=== PATIENT | male | born 2000 | race African-American/Black ===

== ENCOUNTER 2021-06-03 09:30 | Emergency (ER) | payer OTHER ==
--- NOTE | 2021-06-03 10:09 | RAD REPORT ---
EXAM DESCRIPTION: CT - CTHCSPWOC - 06/03/2021 9:59 am CLINICAL HISTORY: PAIN COMPARISON: No comparisons TECHNIQUE: Axial 5 mm thick images of the head were obtained. Axial 2 mm thick images of the cervic al spine were obtained with sagittal and coronal reconstruction images generated and reviewed. Hortencia miles is imaged in a left lateral decubitus position. All CT scans are performed using dose optimization technique as appropriate and may include automated exposure control or mA/KV adjustment according to patient size. FINDINGS: Moderate amount of bilateral subfrontal cortical contusion is present. A 16 millimeter int raparenchymal hemorrhage is present medial left frontal lobe. Patient also has a small interhemispher ic subdural 1-2 mm in thickness. No midline shift. No intraventricular hemorrhage. No suspicion for a cute infarction. No extra-axial fluid collections. Mastoid air cells are clear. Sphenoid sinus mucosa l thickening is present. Air-fluid level is present in the maxillary sinus on the left. Sinus wall fr acture is not seen. No globe or orbit abnormality seen. Cervical body height and alignment are normal. No disk space narrowing. No fracture or acute bony abn ormality. Central canal detail is inherently limited. No paraspinal mass or hematoma. IMPRESSION: Moderate severity bilateral subfrontal cortical contusion with 16 millimeter intraparenc hymal hemorrhage medial left frontal lobe. A small 1-2 mm thickness interhemispheric subdural hematoma seen anteriorly. No midline shift and no intraventricular hemorrhage. No cervical spine abnormalities identified. Air-fluid level in the left maxillary sinus without sinus wall fracture identifiable.
[2021-06-03] MEDS ORDERED: NA CHLORIDE 0.9% 1,000 ML ONE (10:25)
[2021-06-03] MEDS ORDERED: levETIRAcetam 1,000 MG in NA CHLORIDE 0.9% 100 ML IV ONE (10:30)
--- NOTE | 2021-06-03 10:31 | ER ---
Nurse's Notes [facility] Name: Davie Pitts Age: 21 yrs Sex: Male : 2000 Arrival Date: 06/03/2021 Time: 09:31 Bed 3 Private MD: Diagnosis: Unspecified injury of head, initial encounter-Moderate severity subfrontal cortical contusion, 16 mm intraparenchymal hemorrhage, 1-2 mm thick interhemispheric subdurahematoma, no shift;Acute post-traumatic headache;Traumatic subdural hemorrhage;Fall (on) (from) unspecified stairs and steps-jumping;Elevated white blood cell count Presentation: 06/03 09:31 Chief complaint: EMS states: Pt from [facility], fell while playing basketball and ph hit back of head, no LOC, was seen at [facility] and began vomiting, pt admitted to smoking "marisa" prior to fall, drowsy upon arrival to ED but responsive to tactile stimuli, VSS, BGL 128, 10 mg Reglan given IV. Coronavirus screen: At this time, the client does not indicate any symptoms associated with coronavirus-19. Ebola Screen: No symptoms or risks identified at this time. Initial Sepsis Screen: Does the patient meet any 2 criteria? No. Patient's initial sepsis screen is negative. Does the patient have a suspected source of infection? No. Patient's initial sepsis screen is negative. Risk Assessment: Do you want to hurt yourself or someone else? Patient reports no desire to harm self or others. Onset of symptoms was June 03, 2021. 09:31 Method Of Arrival: EMS: [facility] ph 09:31 Acuity: LUZ 3 ph 09:40 Care prior to arrival: Cervical collar in place. Medication(s) given: 10 mg Reglan IV. ph Care prior to arrival: IV initiated. 18 GA, in the left antecubital area, Glucose check: 128. Mechanism of Injury: Fall from standing position. Trauma event details: Injury occurred in the [facility], Injury occurred: in an institution. Injury occurred: June 03, 2021. 10:18 Acuity: LUZ 2 ph Trauma Activation: Not Applicable Physician: ED Physician; Name: ; Notified At: ; Arrived At: Physician: General Surgeon; Name: ; Notified At: ; Arrived At: Physician: Radiology; Name: ; Notified At: ; Arrived At: Physician: Respiratory; Name: ; Notified At: ; Arrived At: Physician: Lab; Name: ; Notified At: ; Arrived At: Historical: - Allergies: 09:34 No Known Allergies; ph - Home Meds: 09:34 None [Active]; ph - PMHx: 09:34 None; ph - Immunization history:: Adult Immunizations up to date. - Social history:: Smoking status: unknown Patient uses street drugs, "Marisa". - Immunization history: Last tetanus immunization: - up to date. Screenin:39 Abuse screen: Denies threats or abuse. Denies injuries from another. Nutritional ph screening: No deficits noted. Tuberculosis screening: No symptoms or risk factors identified. Fall Risk None identified. Primary Survey: 09:39 NO uncontrolled hemorrhage observed. A: The patient is alert. Breathing/Chest: ph Respiratory pattern: regular, Respiratory effort: spontaneous, unlabored, Breath sounds: clear, bilaterally. Chest inspection: symmetrical rise and fall of the chest. Circulation: Skin color: pink, Skin temperature: warm, dry. Disability Painful Stimuli. Exposure/Environment: All clothing and personal items were removed. Forensic evidence collection is not deemed to be indicated at this time. Items placed in patient belonging bag. There is no evidence of uncontrolled external bleeding. No obvious injuries are noted at this time. 10:54 Reassessment Airway Airway Patent Breathing/Chest Respiratory pattern Regular ph Respiratory effort Spontaneous Unlabored Circulation Color [place] Temperature Warm Dry Disability Verbal stimuli. Secondary Survey: 09:30 HEENT: Nose: dried blood noted to L nostril. Gastrointestinal: Patient vomited prior to arrival. Musculoskeletal: No deficits noted. Assessment: 09:35 General: Appears in no apparent distress. comfortable, Behavior is drowsy, quiet. Pain: Complains of pain in occipital area. Neuro: Level of Consciousness is obeys commands, lethargic, Oriented to person, Pupils are PERRLA. Cardiovascular: Capillary refill < 3 seconds in bilateral fingers Patient's skin is warm and dry. Respiratory: Airway is patent Respiratory effort is even, unlabored. GI: Reports nausea, vomiting. Derm: Skin is intact, is healthy with good turgor, Skin is pink, warm \\T\\ dry. Musculoskeletal: Circulation, motion, and sensation intact. Range of motion: intact in all extremities. 10:35 Reassessment: Report given to YURIDIA Coleman at [facility]. ph 11:34 Reassessment: Patient appears in no apparent distress at this time. Patient and/or ph family updated on plan of care and expected duration. Pain level reassessed. Pt remains drowsy, resting w/ eyes closed. will respond to tactile and verbal stimuli when called loudly by name, pt states that he needs to urinate, assisted w/ urinal but falls asleep before urinating, VSS at this time, awaiting transport to [facility]. 12:22 Reassessment: Patient appears in no apparent distress at this time. Patient and/or ph family updated on plan of care and expected duration. Pain level reassessed. Pt resting w/ eyes closed, VSS, awakens briefly to verbal and tactile stimuli and quickly falls back asleep, awaiting transport to [facility]. 13:25 Reassessment: Patient appears in no apparent distress at this time. Patient and/or ph family updated on plan of care and expected duration. Pain level reassessed. [facility] at bedside, pt remains drowsy, will open eyes briefly bu [id number] to answer EMS's questions, then pt sat up straight in bed and states, " I have to pee man" Pt assisted to stand and use urinal then loaded onto EMS stretcher, quickly trolled onto side and fell back asleep. Vital Signs: 09:31 BP 139 / 65; Pulse 69; Resp 18; Temp 97.8; Pulse Ox 100% on R/A; Weight 79.38 kg; ph 10:55 Pulse 72; Resp 18; Pulse Ox 100% on R/A; ph 11:33 BP 131 / 104; Pulse 59; Resp 18; Pulse Ox 100% on R/A; ph 12:21 BP 133 / 60; Pulse 63; Resp 18; Pulse Ox 100% on R/A; ph 13:20 BP 127 / 89; Pulse 71; Resp 18; Temp 98.2; Pulse Ox 99% on R/A; ph Tari Coma Score: 09:39 Eye Response: to pain(2). Verbal Response: confused(4). Motor Response: obeys ph commands(6). Total: 12. 10:09 Eye Response: spontaneous(4). Verbal Response: confused(4). Motor Response: localizes nghia pain(5). Total: 13. 10:55 Eye Response: to voice(3). Verbal Response: confused(4). Motor Response: obeys ph commands(6). Total: 13. 11:33 Eye Response: to voice(3). Verbal Response: confused(4). Motor Response: obeys ph commands(6). Total: 13. 12:21 Eye Response: to voice(3). Verbal Response: confused(4). Motor Response: obeys ph commands(6). Total: 13. 13:20 Eye Response: to voice(3). Verbal Response: confused(4). Motor Response: obeys ph commands(6). Total: 13. Trauma Score (Adult): 09:39 Eye Response: to pain(0); Verbal Response: confused(1); Motor Response: obeys ph commands(2); Systolic BP: > 89 mm Hg(4); Respiratory Rate: 10 to 29 per min(4); Tari Score: 12; Trauma Score: 11 10:55 Eye Response: to voice(0); Verbal Response: confused(1); Motor Response: obeys ph commands(2); Systolic BP: > 89 mm Hg(4); Respiratory Rate: 10 to 29 per min(4); Bern Score: 13; Trauma Score: 11 11:33 Eye Response: to voice(0); Verbal Response: confused(1); Motor Response: obeys ph commands(2); Systolic BP: > 89 mm Hg(4); Respiratory Rate: 10 to 29 per min(4); Tari Score: 13; Trauma Score: 11 12:21 Eye Response: to voice(0); Verbal Response: confused(1); Motor Response: obeys ph commands(2); Systolic BP: > 89 mm Hg(4); Respiratory Rate: 10 to 29 per min(4); Bern Score: 13; Trauma Score: 11 13:20 Eye Response: to voice(0); Verbal Response: confused(1); Motor Response: obeys ph commands(2); Systolic BP: > 89 mm Hg(4); Respiratory Rate: 10 to 29 per min(4); Bern Score: 13; Trauma Score: 11 ED Course: 09:31 Patient arrived in ED. ph 09:31 Jorge Ball MD is Attending Physician. nghai 09:34 Triage completed. ph 09:35 Arm band placed on Patient placed in an exam room, on a stretcher, on pulse oximetry. ph 09:40 Patient has correct armband on for positive identification. Bed in low position. Call ph light in reach. Pulse ox on. NIBP on. Warm blanket given. 09:40 Patient maintains SpO2 saturation greater than 95% on room air. Thermoregulation: warm ph blanket given to patient. 09:58 Jane Fuchs RN is Primary Nurse. ph 09:59 CT Head C Spine In Process Unspecified. EDMS 10:12 transfer initiated to [facility] managed care by Dr Jorge Ball. bd 10:41 Chest Single View XRAY In Process Unspecified. EDMS 10:54 No provider procedures requiring assistance completed. Patient transferred, IV remains ph in place. Administered Medications: 10:30 Drug: NS 0.9% 1000 ml Route: IV; Rate: 1 bolus; Site: left antecubital; ph 12:00 Follow up: Response: No adverse reaction; IV Status: Completed infusion; IV Intake: ph 1000ml 10:30 Drug: Rocephin (cefTRIAXone) 1 grams Route: IV; Rate: per protocol; Site: left ph antecubital; 11:00 Follow up: Response: No adverse reaction; IV Status: Completed infusion ph 10:35 Drug: Zofran (Ondansetron) 4 mg Route: IVP; Site: left antecubital; ph 11:00 Follow up: Response: No adverse reaction ph 10:54 Drug: Keppra (levETIRAcetam) 1000 mg Route: IV; Rate: per protocol; Site: left ph antecubital; 11:15 Follow up: Response: No adverse reaction; IV Status: Completed infusion ph 19:40 Not Given (Other Intervention Used): Viscous Lidocaine Liquid (4 %) 5 ml Mucous ph Membrane once; to bedside Intake: 09:39 PO: 0ml; Total: 0ml. ph 10:55 IV: 1000ml (IV Fluid); Total: 1000ml. ph 12:00 IV: 1000ml; Total: 2000ml. ph 12:21 PO: 0ml; Total: 2000ml. ph Output: 13:20 Urine: 500ml (Voided); Total: 500ml. ph Outcome: 10:31 ER care complete, transfer ordered by MD. nghia 13:27 Patient left the ED. iw 13:27 Transferred by ground EMS to [facility], Transfer form ph completed. X-rays sent w/ patient. 13:27 Condition: stable 13:27 Instructed on the need for transfer. 13:27 Patient's length of stay in the Emergency Department was greater than 2 hours. due to ph awaiting transportPatient's length of stay extended due to Signatures: Dispatcher [employer] EDMS Debby Irby Corey, MD MD cha Williams, Irene, RN RN iw Jane Fuchs RN RN ph Corrections: (The following items were deleted from the chart) 11:34 11:33 BP 131 / 104; Pulse 93bpm; Resp 18bpm; Pulse Ox 100% RA; ph ph
--- NOTE | 2021-06-03 10:31 | EDPHYS ---
Physician Documentation [facility] Name: Davie Pitts Age: 21 yrs Sex: Male : 2000 Arrival Date: 06/03/2021 Time: 09:31 Bed 3 Private MD: ED Physician Jorge Ball HPI: 06/03 10:07 This 21 yrs old Black Male presents to ER via EMS with complaints of Fall Injury. nghia 10:07 Details of fall: The patient fell from an upright position, while jumping. Onset: The nghia symptoms/episode began/occurred just prior to arrival. Associated injuries: The patient sustained injury to the head, neck injury, decreased range of motion. Severity of symptoms: At their worst the symptoms were moderate, in the emergency department the symptoms are unchanged. The patient has not experienced similar symptoms in the past. Historical: - Allergies: 09:34 No Known Allergies; ph - Home Meds: 09:34 None [Active]; ph - PMHx: 09:34 None; ph - Immunization history:: Adult Immunizations up to date. - Social history:: Smoking status: unknown Patient uses street drugs, "Leopoldo". - Immunization history: Last tetanus immunization: - up to date. ROS: 10:09 Constitutional: Negative for fever, chills, and weight loss, Eyes: Negative for injury, nghia pain, redness, and discharge, ENT: Negative for injury, pain, and discharge, Neck: Negative for injury, pain, and swelling, Cardiovascular: Negative for chest pain, palpitations, and edema, Respiratory: Negative for shortness of breath, cough, wheezing, and pleuritic chest pain, Abdomen/GI: Negative for abdominal pain, nausea, vomiting, diarrhea, and constipation, Back: Negative for injury and pain, : Negative for injury, bleeding, discharge, and swelling, MS/Extremity: Negative for injury and deformity, Skin: Negative for injury, rash, and discoloration, Psych: Negative for depression, anxiety, suicide ideation, homicidal ideation, and hallucinations, Allergy/Immunology: Negative for hives, rash, and allergies, Endocrine: Negative for neck swelling, polydipsia, polyuria, polyphagia, and marked weight changes. 10:09 Neuro: Positive for altered mental status, headache. Exam: 10:09 Eyes: Pupils equal round and reactive to light, extra-ocular motions intact. Lids and nghia lashes normal. Conjunctiva and sclera are non-icteric and not injected. Cornea within normal limits. Periorbital areas with no swelling, redness, or edema. ENT: Nares patent. No nasal discharge, no septal abnormalities noted. Tympanic membranes are normal and external auditory canals are clear. Oropharynx with no redness, swelling, or masses, exudates, or evidence of obstruction, uvula midline. Mucous membranes moist. Neck: Trachea midline, no thyromegaly or masses palpated, and no cervical lymphadenopathy. Supple, full range of motion without nuchal rigidity, or vertebral point tenderness. No Meningismus. Chest/axilla: Normal chest wall appearance and motion. Nontender with no deformity. No lesions are appreciated. Cardiovascular: Regular rate and rhythm with a normal S1 and S2. No gallops, murmurs, or rubs. Normal PMI, no JVD. No pulse deficits. Respiratory: Lungs have equal breath sounds bilaterally, clear to auscultation and percussion. No rales, rhonchi or wheezes noted. No increased work of breathing, no retractions or nasal flaring. Abdomen/GI: Soft, non-tender, with normal bowel sounds. No distension or tympany. No guarding or rebound. No evidence of tenderness throughout. Back: No spinal tenderness. No costovertebral tenderness. Full range of motion. Skin: Warm, dry with normal turgor. Normal color with no rashes, no lesions, and no evidence of cellulitis. MS/ Extremity: Pulses equal, no cyanosis. Neurovascular intact. Full, normal range of motion. Neuro: Awake and alert, GCS 15, oriented to person, place, time, and situation. Cranial nerves II-XII grossly intact. Motor strength 5/5 in all extremities. Sensory grossly intact. Cerebellar exam normal. Normal gait. Psych: Awake, alert, with orientation to person, place and time. Behavior, mood, and affect are within normal limits. 10:09 Constitutional: The patient appears in obvious distress, mildly distressed. 10:09 Head/face: Noted is contusion, that is superficial, of the left side of the back of head, left occipital area and left base of the skull. 10:09 Cardiovascular: Exam negative for acute changes, arrhythmia, bradycardia, edema, gallop, JVD, murmur, pulse deficit, rub, tachycardia. 10:09 Abdomen/GI: Inspection: abdomen appears normal. 10:19 Radiologist reports: bilateral subfrontal cortical contusion, 16 mm intraparenchymal, nghia medial left frontal lobe, 1-2 mm interhemispheric hematoma 10:34 ECG was reviewed by the Attending Physician. [facility] Vital Signs: 09:31 BP 139 / 65; Pulse 69; Resp 18; Temp 97.8; Pulse Ox 100% on R/A; Weight 79.38 kg; ph 10:55 Pulse 72; Resp 18; Pulse Ox 100% on R/A; ph 11:33 BP 131 / 104; Pulse 59; Resp 18; Pulse Ox 100% on R/A; ph 12:21 BP 133 / 60; Pulse 63; Resp 18; Pulse Ox 100% on R/A; ph 13:20 BP 127 / 89; Pulse 71; Resp 18; Temp 98.2; Pulse Ox 99% on R/A; ph Tari Coma Score: 09:39 Eye Response: to pain(2). Verbal Response: confused(4). Motor Response: obeys ph commands(6). Total: 12. 10:09 Eye Response: spontaneous(4). Verbal Response: confused(4). Motor Response: localizes nghia pain(5). Total: 13. 10:55 Eye Response: to voice(3). Verbal Response: confused(4). Motor Response: obeys ph commands(6). Total: 13. 11:33 Eye Response: to voice(3). Verbal Response: confused(4). Motor Response: obeys ph commands(6). Total: 13. 12:21 Eye Response: to voice(3). Verbal Response: confused(4). Motor Response: obeys ph commands(6). Total: 13. 13:20 Eye Response: to voice(3). Verbal Response: confused(4). Motor Response: obeys ph commands(6). Total: 13. Trauma Score (Adult): 09:39 Eye Response: to pain(0); Verbal Response: confused(1); Motor Response: obeys ph commands(2); Systolic BP: > 89 mm Hg(4); Respiratory Rate: 10 to 29 per min(4); Gilman Score: 12; Trauma Score: 11 10:55 Eye Response: to voice(0); Verbal Response: confused(1); Motor Response: obeys ph commands(2); Systolic BP: > 89 mm Hg(4); Respiratory Rate: 10 to 29 per min(4); Tari Score: 13; Trauma Score: 11 11:33 Eye Response: to voice(0); Verbal Response: confused(1); Motor Response: obeys ph commands(2); Systolic BP: > 89 mm Hg(4); Respiratory Rate: 10 to 29 per min(4); Tari Score: 13; Trauma Score: 11 12:21 Eye Response: to voice(0); Verbal Response: confused(1); Motor Response: obeys ph commands(2); Systolic BP: > 89 mm Hg(4); Respiratory Rate: 10 to 29 per min(4); Tari Score: 13; Trauma Score: 11 13:20 Eye Response: to voice(0); Verbal Response: confused(1); Motor Response: obeys ph commands(2); Systolic BP: > 89 mm Hg(4); Respiratory Rate: 10 to 29 per min(4); Gilman Score: 13; Trauma Score: 11 MDM: 09:31 Patient medically screened. [facility] 10:09 Differential diagnosis: cerebral vascular accident, epidural hematoma, drug effects, nghia hypoglycemia, hyponatremia, intracerebral hemorrhage, migraine, subarachnoid bleed, subdural hematoma, tension headache, traumatic injuries, vasomotor headache. Differential diagnosis: abrasion, closed head injury, contusion, fracture, laceration, multiple trauma, sprain, strain. Data reviewed: vital signs, nurses notes, EMS record, lab test result(s), EKG, radiologic studies, CT scan, plain films. Data interpreted: medical record specialist: rate is 100 beats/min, rhythm is normal sinus rhythm, regular, Pulse oximetry: on room air is 100 %. Test interpretation: by ED physician or midlevel provider: ECG, plain radiologic studies. Counseling: I had a detailed discussion with the patient and/or guardian regarding: the historical points, exam findings, and any diagnostic results supporting the discharge/admit diagnosis, lab results, radiology results, the need to transfer to another facility, for higher level of care, [facility] does not immediately have the required specialist. 06/03 09:40 Order name: Acetaminophen [facility] 06/03 09:40 Order name: Basic Metabolic Panel [facility] 06/03 09:40 Order name: CBC with Diff; Complete Time: 11:31 [facility] 06/03 09:40 Order name: ETOH Level; Complete Time: 11: [facility] 06/03 09:40 Order name: Hepatic Function [facility] 06/03 09:40 Order name: PT-INR; Complete Time: 11:31 [facility] 06/03 09:40 Order name: Ptt, Activated; Complete Time: 11: [facility] 06/03 09:40 Order name: Salicylate; Complete Time: 11: [facility] 06/03 09:40 Order name: CT Head C Spine; Complete Time: 11: [facility] 06/03 09:40 Order name: Chest Single View XRAY; Complete Time: 11: [facility] 06/03 09:40 Order name: Troponin (emerg Dept Use Only) [facility] 06/03 09:40 Order name: EKG; Complete Time: 09:40 [facility] 06/03 09:40 Order name: EKG - Nurse/Tech; Complete Time: 10:12 [facility] 06/03 09:40 Order name: IV Saline Lock; Complete Time: 10:13 [facility] 06/03 09:40 Order name: Labs collected and sent; Complete Time: 10:13 [facility] 06/03 09:40 Order name: Seizure Precautions; Complete Time: 10:12 [facility] 06/03 10:07 Order name: NPO; Complete Time: 10:12 [facility] EC:34 Rate is 68 beats/min. Rhythm is regular. QRS [place] is Normal. RI interval is normal. QRS nghia interval is normal. QT interval is normal. No Q waves. T waves are Normal. No ST changes noted. Clinical impression: NSR w/ Non-specific ST/T Changes and No evidence of ischemia. Interpreted by me. Reviewed by me. Administered Medications: 10:30 Drug: NS 0.9% 1000 ml Route: IV; Rate: 1 bolus; Site: left antecubital; ph 12:00 Follow up: Response: No adverse reaction; IV Status: Completed infusion; IV Intake: ph 1000ml 10:30 Drug: Rocephin (cefTRIAXone) 1 grams Route: IV; Rate: per protocol; Site: left ph antecubital; 11:00 Follow up: Response: No adverse reaction; IV Status: Completed infusion ph 10:35 Drug: Zofran (Ondansetron) 4 mg Route: IVP; Site: left antecubital; ph 11:00 Follow up: Response: No adverse reaction ph 10:54 Drug: Keppra (levETIRAcetam) 1000 mg Route: IV; Rate: per protocol; Site: left ph antecubital; 11:15 Follow up: Response: No adverse reaction; IV Status: Completed infusion ph 19:40 Not Given (Other Intervention Used): Viscous Lidocaine Liquid (4 %) 5 ml Mucous ph Membrane once; to bedside Disposition Summary: 06/03/21 10:31 Transfer Ordered Transfer Location: [facility] nghia Reason: Higher level of care nghia Condition: Stable nghia Problem: new nghia Symptoms: are unchanged nghia Accepting Physician: to [facility], [facility], [facility](06/03/21 13:27) iw Diagnosis - Unspecified injury of head, initial encounter - Moderate severity subfrontal nghia cortical contusion, 16 mm intraparenchymal hemorrhage, 1-2 mm thick interhemispheric subdurahematoma, no shift - Acute post-traumatic headache nghia - Traumatic subdural hemorrhage nghia - Fall (on) (from) unspecified stairs and steps - jumping nghia - Elevated white blood cell count nghia Forms: - Medication Reconciliation Form nghia - SBAR form nghia Signatures: Dispatcher [employer] EDJorge Rockwell MD MD cha Williams, Irene RN RN iw Jane Fuchs RN RN ph Corrections: (The following items were deleted from the chart) 10:31 10:31 to [facility] nghia nghia 10:45 10:31 to [facility], [facility] nghia nghia 13:27 10:45 to [facility], [facility] nghia iw
[2021-06-03 10:34] LABS: Absolute Lymphocytes (CBC) 1.8 K/uL (0.7-4.9); Basophils % 0.1 % (0-1.3); Hematocrit 42.2 % (39.6-49.0); Lymphocytes % 8.7 % (15.3-44.8); MPV 8.4 fL (7.6-11.3); RBC Red Blood Cell Count 5.79 M/uL (4.33-5.43)
[2021-06-03 10:42] LABS: Protime INR 1.01
[2021-06-03] MEDS ORDERED: CEFTRIAXONE/SWI 1gm 1 GM/10 ML SYR ONE (10:50)
--- NOTE | 2021-06-03 10:51 | RAD REPORT ---
EXAM DESCRIPTION: RAD - Chest Single View - 06/03/2021 10:41 am CLINICAL HISTORY: COUGH COMPARISON: None TECHNIQUE: AP portable chest image was obtained 06/03/2021 10:41 am in supine positioning. FINDINGS: No pulmonary contusion or acute lung parenchymal process seen. Heart and vasculature are n ormal. No measurable pleural effusion and no pneumothorax. No acute bony abnormality seen. No acute a ortic findings suspected. IMPRESSION: No acute cardiopulmonary process.
[2021-06-03] MEDS ORDERED: ONDANSETRON 4 MG/2 ML VIAL ONE (10:54)
[2021-06-03 13:40] VITALS: TEMP 97.8; O2SAT 100
[2021-06-03 13:46] VITALS: BP 133/60
[2021-06-03 15:11] LABS: ALT/SGPT 24 U/L (12-78); AST/SGOT 26 U/L (15-37); Albumin 4.4 g/dL (3.4-5.0); Alkaline Phosphatase 65 U/L (45-117); BUN Blood Urea Nitrogen 11 mg/dL (7-18); Bicarbonate 21 mmol/L (21-32); Bilirubin Direct 0.2 mg/dL (0-0.2); Bilirubin Total 1.1 mg/dL (0.2-1.0); Glucose Level 150 mg/dL (74-106); Protein, Total 7.5 g/dL (6.4-8.2); Sodium Level 139 mmol/L (136-145); Troponin (Emerg Dept Use Only) < 0.02 ng/mL (0.0-0.045)
[2021-06-03 15:15] LABS: Potassium 2.8 mmol/L (3.5-5.1)
--- NOTE | 2021-06-04 16:14 | EKG ---
Test Date: 2021-06-03 Test Time: 10:09:47 Classroom Paraprofessional: SIMIN MEASUREMENT RESULTS: Intervals: Rate: 68 MI: 146 QRSD: 94 QT: 396 QTc: 421 Home: P: 54 MI: 146 QRS: 27 T: 52 INTERPRETIVE STATEMENTS: Normal sinus rhythm Possible Anterior infarct, age undetermined Abnormal ECG No previous ECG available for comparison Electronically Signed On 06-04-21 16:08:59 CDT by Hans Cavanaugh
== END 2021-06-03 13:27 | disposition short-term general hospital (02) ==
LOC: ER 09:30
DX: S06.5X0A Traumatic subdural hemorrhage without loss of consciousness, initial encounter (principal); G44.319 Acute post-traumatic headache, not intractable; D72.829 Elevated white blood cell count, unspecified; W10.8XXA Fall (on) (from) other stairs and steps, initial encounter; Y93.89 Activity, other specified; Y92.149 Unspecified place in prison as the place of occurrence of the external cause
CPT/HCPCS: 96365; 96361; 93005; 85025; 80048; 36415; 80320; 80329 ×2; 85610; 80076; 85730; 84484; 70450; 72125; 71045; 96375; 99285; J2405; J0696; J1953; J7030